=== PATIENT | female | born 1980 | race Caucasian/White ===

== ENCOUNTER 2020-08-13 08:29 | Emergency (ER) | payer OTHER ==
[~2020-08-13] VITALS: Ht 152.4 cm; Wt 62.6 kg
[2020-08-13] MEDS ORDERED: NORFLEX100MG PO (14:04)
[2020-08-13] MEDS ORDERED: ZITHROMAX500 MG PO (14:04)
[2020-08-13] MEDS ORDERED: KETO10TA2 PO (14:04)
== END 2020-08-13 14:11 | disposition home or self-care (01) ==
LOC: ER 08:29
DX: R22.1 Localized swelling, mass and lump, neck (principal); Z03.818 Encounter for observation for suspected exposure to other biological agents ruled out